=== PATIENT | male | born 1985 | race Caucasian/White ===

== ENCOUNTER 2020-10-21 22:14 | Emergency (ER) | payer SELFPAY ==
[2020-10-21 22:23] VITALS: BP 139/95; PULSE 90; TEMP 98.3; BMI 25.8
[2020-10-21 22:51] LABS: HEMATOCRIT 43.1 % (35.4-49)
[2020-10-21 22:55] LABS: BASO % 0.5 % (0-2.0); EOS % 1.9 % (0-4.5); LYMPH % 22.6 % (8-40); MCH 31.3 pg (25.7-33.7); MCHC 34.8 g/dl (32.0-35.9); MEAN CELL VOLUME 89.7 fl (80-96); MEAN PLT VOLUME 9.1 fl (7.5-11.1); PLATELET COUNT 231 K/MM3 (134-434); RDW 12.1 % (11.9-15.9); WHITE BLOOD COUNT 9.4 K/mm3 (4.0-10.8)
[2020-10-21 23:00] LABS: ALBUMIN 4.8 g/dl (3.4-5.0); CALCIUM 9.3 mg/dl (8.5-10); CREATININE 0.9 mg/dl (0.55-1.3); POTASSIUM 3.7 mmol/L (3.5-5.1); TOT PROT 7.1 g/dl (6.4-8.2)
[2020-10-21] MEDS ORDERED: FAMOTIDINE 20 MG/50 ML IVPB 20 MG/50 ML MG IVPB ONE ×2 (23:26→23:38)
[2020-10-21] MEDS ORDERED: KETOROLAC TROMETHAMINE 30 MG/1 ML VIAL ONE (23:26)
[2020-10-21] MEDS ORDERED: KETOROLAC TROMETHAMINE 30 MG/1 ML VIAL IVPUSH ONE (23:38)
== END 2020-10-22 00:21 | disposition home or self-care (01) ==
LOC: FER 22:14
PROC: 3E033GC Introduction of Other Therapeutic Substance into Peripheral Vein, Percutaneous Approach (ICD-10-PCS; principal; 2020-10-21)
PROC: 3E0333Z Introduction of Anti-inflammatory into Peripheral Vein, Percutaneous Approach (ICD-10-PCS; 2020-10-21)
DX: R07.9 Chest pain, unspecified (principal)
CPT/HCPCS: 36415; 71045-TC-FY; 80053; 82550; 84484; 85025; 85379; 99285-25

== ENCOUNTER 2020-10-22 06:30 | Emergency (ER) | payer SELFPAY ==
[2020-10-22 06:47] VITALS: TEMP 97.5; BMI 25.8
[2020-10-22] MEDS ORDERED: ACETAMINOPHEN 325 MG TABLET (FP) PO ONE (07:39)
[2020-10-22] MEDS ORDERED: ACETAMINOPHEN 325 MG TABLET (FP) ONE (07:50)
[2020-10-22 09:24] LABS: LIPASE 149 U/L (73-393)
[2020-10-22] MEDS ORDERED: ALPRAZolam 0.25 MG TABLET PO ONE (10:00)
[2020-10-22] MEDS ORDERED: ALPRAZolam 0.25 MG TABLET ONE (10:03)
[2020-10-22 11:07] VITALS: BP 118/74; PULSE 70
== END 2020-10-22 11:09 | disposition home or self-care (01) ==
LOC: FER 06:30
PROC: 3E0233Z Introduction of Anti-inflammatory into Muscle, Percutaneous Approach (ICD-10-PCS; principal; 2020-10-22)
DX: R07.9 Chest pain, unspecified (principal); R00.2 Palpitations
CPT/HCPCS: 36415; 82550; 83690; 84484; 93005; 99284-25

== ENCOUNTER 2020-10-22 19:15 | Emergency (ER) | payer SELFPAY ==
[2020-10-22] MEDS ORDERED: KETOROLAC TROMETHAMINE 60 MG/2 ML VIAL IM ONE (20:42)
[2020-10-22] MEDS ORDERED: KETOROLAC TROMETHAMINE 60 MG/2 ML VIAL ONE (20:45)
[2020-10-22 21:37] VITALS: BP 143/88; PULSE 74; TEMP 98.1; BMI 25.8
== END 2020-10-22 20:53 | disposition home or self-care (01) ==
LOC: FER 19:15
PROC: 3E0233Z Introduction of Anti-inflammatory into Muscle, Percutaneous Approach (ICD-10-PCS; principal; 2020-10-22)
DX: S29.011A Strain of muscle and tendon of front wall of thorax, initial encounter (principal); F41.9 Anxiety disorder, unspecified
CPT/HCPCS: 99284-25